=== PATIENT | female | born 1960 | race Caucasian/White ===

== ENCOUNTER 2025-06-29 16:46 | Inpatient (IN) | payer MEDICARE ==
[~2025-06-29] VITALS: Ht 162.6 cm; Wt 85.9 kg
[2025-06-29 17:00] VITALS: BP 158/76
[2025-06-29] MEDS ORDERED: SODIUM CHLORIDE 0.9% 1,000 ML IV ONE ×2 (17:05→20:20)
[2025-06-29 17:40] LABS: BASO # 0.0 10*3/uL (0.0-0.1); BASO % 0.4 % (0.0-1.0); EOS # 0.2 10*3/uL (0.0-0.4); EOS % 2.3 % (1.0-4.0); MEAN CELL VOLUME 95.8 fl (81.0-99.0); MEAN CORPUSCULAR HGB 32.2 pg (27.0-31.0); MEAN PLATELET VOLUME 10.2 fl (9.6-12.3); MONO # 0.4 10*3/uL (0.1-1.0); MONO % 5.4 % (3.0-9.0); NEUT # 3.3 10*3/uL (2.3-7.9); NEUT % 43.0 % (47.0-73.0); NUCLEATED RED BLOOD CELL 0.0 % (0.0-0.0); NUCLEATED RED BLOOD CELL 0.0 10*3/uL (0.0-0.0); PLATELET COUNT AUTOMATED 147 10*3/uL (130-400); RED CELL DISTRI WIDTH 12.7 % (0-14.5)
[2025-06-29 17:59] LABS: BUN 14.0 mg/dl (9-23)
[2025-06-29 18:20] LABS: BILIRUBIN Negative (Negative); BLOOD Negative (Negative); CLARITY Clear (Clear); COLOR Yellow (Yellow); KETONE Trace (Negative); LEUKO ESTERASE Negative (Negative); NITRITE Negative (Negative); PH 6.5 (4.5-8.0); SPECIFIC GRAVITY 1.020 (1.001-1.030); UROBILINOGEN 0.2 E.U./dl (0.0-1.0)
[2025-06-29 18:35] LABS: MUCOUS TRACE
[2025-06-29] MEDS ORDERED: ASPIRIN, CHEWABLE 81 MG TAB PO ONE (18:50)
[2025-06-29] MEDS ORDERED: Depakote500 MG PO (19:10)
[2025-06-29] MEDS ORDERED: KLONOPIN1 M1 PO (19:10)
[2025-06-29] MEDS ORDERED: OXYBUTYNIN5 MG PO (19:11)
[2025-06-29] MEDS ORDERED: GABAPENTIN400 MG PO (19:11)
[2025-06-29] MEDS ORDERED: LEXAPRO10 MG PO (19:11)
[2025-06-29] MEDS ORDERED: TRAZODONE50 MG PO (19:12)
[2025-06-29] MEDS ORDERED: LOSARTAN POTASS25 M1 PO (19:12)
[2025-06-29] MEDS ORDERED: LIPITOR40 MG PO (19:13)
[2025-06-29] MEDS ORDERED: LANTUS100 UNIT/1 SQ (19:13)
[2025-06-29] MEDS ORDERED: SINGULAIR10 M1 PO (19:13)
[2025-06-29] MEDS ORDERED: Acetaminophen/Hydrocodone 5 MG/325 MG TABLET PO PRN (20:10)
[2025-06-29] MEDS ORDERED: ACETAMINOPHEN 650 MG SUPP R PRN (20:10)
[2025-06-29] MEDS ORDERED: ACETAMINOPHEN 325 MG TAB PO PRN (20:10)
[2025-06-29] MEDS ORDERED: DEXTROSE 50% 25 GM/50 ML VIAL IV PRN (20:20)
[2025-06-29] MEDS ORDERED: ATORVASTATIN CALCIUM 80 MG TAB PO SCH (20:20)
[2025-06-29] MEDS ORDERED: SODIUM CHLORIDE 0.9% 100 ML BAG IV ONE (20:30)
[2025-06-29] MEDS ORDERED: IOHEXOL 350 MG/ML 100 ML VIAL IV ONE (20:30)
[2025-06-29 21:15] VITALS: BP 155/66
[2025-06-29] MEDS ORDERED: INSULIN LISPRO 1 UNIT/0.01 ML SQ SCH (22:00)
[2025-06-29 22:30] LABS: URINE AMPHETAMINES Negative (1000ng/ml); URINE BARBITURATES Negative (200ng/ml); URINE BENZODIAZEPINES Negative (200ng/ml); URINE CANNABINOIDS (THC) Negative (50ng/ml); URINE COCAINE Negative (300ng/ml); URINE METHADONE Negative (300ng/ml); URINE OPIATES Negative (300ng/ml); URINE PHENCYCLIDINE Negative (25ng/ml)
[2025-06-29] MEDS ORDERED: Clopidogrel Hydrogen Sulfate 75 MG TAB PO SCH (23:45)
[2025-06-30] VITALS: BP 154/62
[2025-06-30 05:45] LABS: BUN 10 mg/dl (9-23); FREE T4 1.04 ng/dl (0.89-1.76); LDL CHOLESTEROL 85 mg/dL (9-159)
[2025-06-30 05:57] LABS: SGPT/ALT < 7 U/L (5-49)
[2025-06-30 06:06] LABS: VITAMIN D, 25-HYDROXY 43.4 ng/mL (30-100)
[2025-06-30 06:13] LABS: BASO # 0.0 10*3/uL (0.0-0.1); BASO % 0.2 % (0.0-1.0); EOS # 0.3 10*3/uL (0.0-0.4); EOS % 2.8 % (1.0-4.0); MEAN CELL VOLUME 96.7 fl (81.0-99.0); MEAN CORPUSCULAR HGB 32.1 pg (27.0-31.0); MEAN PLATELET VOLUME 10.4 fl (9.6-12.3); MONO # 0.5 10*3/uL (0.1-1.0); MONO % 5.9 % (3.0-9.0); NEUT # 3.2 10*3/uL (2.3-7.9); NEUT % 35.5 % (47.0-73.0); NUCLEATED RED BLOOD CELL 0.0 % (0.0-0.0); NUCLEATED RED BLOOD CELL 0.0 10*3/uL (0.0-0.0); PLATELET COUNT AUTOMATED 141 10*3/uL (130-400); RED CELL DISTRI WIDTH 12.5 % (0-14.5)
[2025-06-30 08:00] VITALS: BP 159/74
[2025-06-30] MEDS ORDERED: ESCITALOPRAM OXALATE 10 MG TAB PO SCH (10:00)
[2025-06-30] MEDS ORDERED: DIVALPROEX ER 500 MG TAB PO SCH (10:00)
[2025-06-30] MEDS ORDERED: Clopidogrel Hydrogen Sulfate 75 MG TAB PO SCH (10:00)
[2025-06-30] MEDS ORDERED: ASPIRIN ENTERIC COATED 81 MG TAB PO SCH (10:00)
[2025-06-30] MEDS ORDERED: Insulin Glargine, Recombinan 1 UNIT/0.01 ML SC SCH (10:00)
[2025-06-30 12:00] VITALS: BP 153/69
[2025-06-30 16:00] VITALS: BP 167/70
[2025-06-30 20:00] VITALS: BP 150/55
[2025-07-01] VITALS: BP 151/79
[2025-07-01 06:09] LABS: BASO # 0.0 10*3/uL (0.0-0.1); BASO % 0.2 % (0.0-1.0); EOS # 0.3 10*3/uL (0.0-0.4); EOS % 3.7 % (1.0-4.0); MEAN CELL VOLUME 96.2 fl (81.0-99.0); MEAN CORPUSCULAR HGB 32.5 pg (27.0-31.0); MEAN PLATELET VOLUME 10.7 fl (9.6-12.3); MONO # 0.6 10*3/uL (0.1-1.0); MONO % 6.4 % (3.0-9.0); NEUT # 3.1 10*3/uL (2.3-7.9); NEUT % 34.9 % (47.0-73.0); NUCLEATED RED BLOOD CELL 0.0 % (0.0-0.0); NUCLEATED RED BLOOD CELL 0.0 10*3/uL (0.0-0.0); PLATELET COUNT AUTOMATED 142 10*3/uL (130-400); RED CELL DISTRI WIDTH 12.4 % (0-14.5)
[2025-07-01 06:47] LABS: BUN 12 mg/dl (9-23)
[2025-07-01 08:00] VITALS: BP 143/57
[2025-07-01 12:00] VITALS: BP 122/55
[2025-07-01 16:00] VITALS: BP 140/55
[2025-07-01 20:00] VITALS: BP 142/65
[2025-07-02] VITALS: BP 152/57
[2025-07-02 08:00] VITALS: BP 146/83
[2025-07-02 12:00] VITALS: BP 128/45
[2025-07-02 16:00] VITALS: BP 151/68
[2025-07-02 20:00] VITALS: BP 160/74
== END 2025-07-02 23:19 | disposition short-term general hospital (02) | DRG 65 ==
LOC: ED 16:46 → EDHOLD 19:55 → 5E 19:55
PROVIDERS: Emergency Medicine; Student in an Organized Health Care Education/Training Program; ADMIT Internal Medicine; ATTEND Internal Medicine
DX: I63.9 Cerebral infarction, unspecified (principal); E87.20 Acidosis, unspecified; I10 Essential (primary) hypertension; E11.65 Type 2 diabetes mellitus with hyperglycemia; E78.1 Pure hyperglyceridemia; E88.09 Other disorders of plasma-protein metabolism, not elsewhere classified; I65.22 Occlusion and stenosis of left carotid artery; F31.9 Bipolar disorder, unspecified; R29.700 NIHSS score 0; E11.40 Type 2 diabetes mellitus with diabetic neuropathy, unspecified; Z79.4 Long term (current) use of insulin; Z88.0 Allergy status to penicillin; Z90.49 Acquired absence of other specified parts of digestive tract